=== PATIENT | female | born 1975 | race Caucasian/White ===

== ENCOUNTER 2017-03-31 01:55 | Emergency (ER) | payer MEDICAID ==
[~2017-03-31] VITALS: Ht 165.1 cm; Wt 70.3 kg
[~2017-03-31 01:55] MED LIST: PREN1TAB62 PO
[2017-03-31 02:01] VITALS: Ht 165.1 cm; Wt 70.3 kg
[2017-03-31 02:37] LABS: URINE BLOOD (Dip) POC Trace-intact (NEGATIVE)
[2017-03-31 02:58] LABS: BASOPHILS % 0.5 % (0.0-2.0); EOSINOPHILS # 0.1 10^3/ul (0.0-0.5); EOSINOPHILS % 1.3 % (0.0-7.0); HEMATOCRIT 35.3 % (37.0-47.0); HEMOGLOBIN 11.5 g/dl (12.0-16.0); LYMPHOCYTES # 2.8 10^3/ul (0.8-2.9); LYMPHOCYTES % 35.3 % (15.0-51.0); MEAN CORPUSCULAR HEMOGLOBIN 25.8 pg (29.0-33.0); MEAN CORPUSCULAR HGB CONC 32.6 g/dl (32.0-37.0); MEAN CORPUSCULAR VOLUME 79.3 fl (82.0-101.0); MEAN PLATELET VOLUME 11.6 fl (7.4-10.4); MONOCYTE # 0.6 10^3/ul (0.3-0.9); MONOCYTES % 7.4 % (0.0-11.0); NEUTROPHIL # 4.4 10^3/ul (1.6-7.5); NEUTROPHILS % 55.4 % (39.0-77.0); PLATELET COUNT 306 10^3/UL (140-415); RED BLOOD COUNT 4.45 10^6/ul (4.20-5.40); RED CELL DISTRIBUTION WIDTH 15.9 % (11.5-14.5)
[2017-03-31 03:04] LABS: ADD UMIC YES; UR ASCORBIC ACID 40 mg/dL (NEGATIVE); UR BILIRUBIN (Dip) NEGATIVE (NEGATIVE); UR BLOOD (Dip) NEGATIVE (NEGATIVE); UR CLARITY CLEAR (CLEAR); UR COLOR YELLOW (YELLOW); UR GLUCOSE (Dip) NEGATIVE (NEGATIVE); UR KETONES (Dip) NEGATIVE (NEGATIVE); UR LEUKOCYTE ESTERASE (Dip) NEGATIVE Leu/ul (NEGATIVE); UR NITRITE (Dip) NEGATIVE (NEGATIVE); UR RBC 1 /HPF (0-5); UR SQUAMOUS EPITHELIAL CELL FEW /HPF (FEW); UR TOTAL PROTEIN (Dip) 1+ mg/dl (NEGATIVE); UR UROBILINOGEN (Dip) NEGATIVE (NEGATIVE)
--- NOTE | 2017-03-31 03:06 | RADRPT ---
PROCEDURE: US abdomen limited right upper quadrant. CLINICAL INDICATION: Abdominal pain TECHNIQUE: Multiple real-time images were acquired of the patient's right upper quadrant of the ab domen utilizing a high resolution transducer. COMPARISON: US ABDOMEN 08/07/2012 FINDINGS: Multiple gallstones in the gallbladder. There is no pericholecystic fluid or gallbladder wall thickening. The common bile duct measures 9.9 mm in maximal dimension. No free fluid is identified. No abnormality is seen in the pancreas or liver. The right kidney mariajose ures 10.2 cm in length and is unremarkable. IMPRESSION: Cholelithiasis again seen. Dilated common bile duct again seen. Please see above. RPTAT: HJES .Huseyin Aguilera MD, MD Date Time Electronically viewed and signed by .Huseyin Aguilera MD, on 03/31/2017 03:06 .S/
--- NOTE | 2017-03-31 03:23 | ERD ---
ER Documentation Chief Complaint Chief Complaint epigastric pain 30 min [employer] WORK[employer]. "feels inflammed" -n/v HPI 41-year-old female presents here to emergency department for complaints of epigastric pain sudden onset tonight was sleeping. Patient has had a history of gastritis before. Patient describes the pain as sharp pain, succession scale , not better or worse with anything. Intermittent type of pain. Patient denies any fever chills. Patient denies any vomiting diarrhea or constipation. Patient denies any fever chills. ROS All systems reviewed and are negative except as per history of present illness. Medications Home Meds Reported Medications Vit-Iron Fumarate-FA ( Vitamin Tablet) 1 Each Tablet, 1 EACH PO DAILY 12/20/12 Allergies Allergies: Coded Allergies: No Known Drug Allergies (Verified Allergy, Unknown, 03/31/17) PMhx/Soc History of Surgery: Yes () Anesthesia Reaction: No Hx Neurological Disorder: No Hx Respiratory Disorders: No Hx Cardiac Disorders: Yes (Hypertension) Hx Psychiatric Problems: No Hx Miscellaneous Medical Probl: No Hx Alcohol Use: No Hx Substance Use: No Hx Tobacco Use: No Smoking Status: Never smoker FmHx Family History: No coronary disease, No diabetes, No other Physical Exam Vitals Vital Signs Date Time Temp Pulse Resp B/P Pulse Ox O2 Delivery O2 Flow Rate FiO2 03/31/17 02:01 97.2 71 18 124/71 99 Physical Exam GENERAL: The patient is well developed and appropriate for usual state of health, in no apparent distress. CHEST: Clear to auscultation bilaterally. There are no rales, wheezes or rhonchi. HEART: Regular rate and rhythm. No murmurs, clicks, rubs or gallops. No S3 or S4. ABDOMEN: Soft, nontender and nondistended. Good bowel sounds. No rebound or guarding. No gross peritonitis. No gross organomegaly or masses. No Preciado sign or McBurney point tenderness. BACK: No midline or flank tenderness. EXTREMITIES: Equal pulses bilaterally. There is no peripheral clubbing, cyanosis or edema. No focal swelling or erythema. Full range of motion. Grossly neurovascularly intact. NEURO: Alert and oriented. Cranial nerves 2-12 intact. Motor strength in all 4 extremities with 5/5 strength. Sensation grossly intact. Normal speech and gait. SKIN: There is no apparent rash or petechia. The skin is warm and dry. HEMATOLOGIC AND LYMPHATIC: There is no evidence of excessive bruising or lymphedema. No gross cervical, axillary, or inguinal lymphadenopathy. Result Diagram: 03/31/17 0245 03/31/17 0245 Results 24 hrs Laboratory Tests Test 03/31/17 02:11 03/31/17 02:36 03/31/17 02:45 Troponin I < 0.012ng/ml Bedside Urine pH (LAB) 6.0 Bedside Urine Protein (LAB) 2+ Bedside Urine Glucose (UA) Negative Bedside Urine Ketones (LAB) Negative Bedside Urine Blood Trace-intact Bedside Urine Nitrite (LAB) Negative Bedside Urine Leukocyte Esterase (L Negative White Blood Count 8.010^3/ul Red Blood Count 4.4510^6/ul Hemoglobin 11.5g/dl Hematocrit 35.3% Mean Corpuscular Volume 79.3fl Mean Corpuscular Hemoglobin 25.8pg Mean Corpuscular Hemoglobin Concent 32.6g/dl Red Cell Distribution Width 15.9% Platelet Count 39895^3/UL Mean Platelet Volume 11.6fl Neutrophils % 55.4% Lymphocytes % 35.3% Monocytes % 7.4% Eosinophils % 1.3% Basophils % 0.5% Nucleated Red Blood Cells % 0.0/100WBC Neutrophils # 4.410^3/ul Lymphocytes # 2.810^3/ul Monocytes # 0.610^3/ul Eosinophils # 0.110^3/ul Basophils # 0.010^3/ul Nucleated Red Blood Cells # 0.010^3/ul Urine Color YELLOW Urine Clarity CLEAR Urine pH 5.0 Urine Specific [place] 1.020 Urine Ketones NEGATIVEmg/dL Urine Nitrite NEGATIVEmg/dL Urine Bilirubin NEGATIVEmg/dL Urine Urobilinogen NEGATIVEmg/dL Urine Leukocyte Esterase NEGATIVELeu/ul Urine Microscopic RBC 1/HPF Urine Microscopic WBC 3/HPF Urine Squamous Epithelial Cells FEW/HPF Urine Hemoglobin NEGATIVEmg/dL Urine Glucose NEGATIVEmg/dL Urine Total Protein 1+mg/dl Sodium Level 140mmol/L Potassium Level 3.8mmol/L Chloride Level 104mmol/L Carbon Dioxide Level 25mmol/L Anion Gap 15 Blood Urea Nitrogen 21mg/dl Creatinine 0.90mg/dl Glucose Level 107mg/dl Calcium Level 9.5mg/dl Total Bilirubin 0.1mg/dl Direct Bilirubin 0.00mg/dl Indirect Bilirubin 0.1mg/dl Aspartate Amino Transf (AST/SGOT) 78IU/L Alanine Aminotransferase (ALT/SGPT) 54IU/L Alkaline Phosphatase 97IU/L Total Protein 8.1g/dl Albumin 4.0g/dl Globulin 4.10g/dl Albumin/Globulin Ratio 0.97 Lipase 69U/L EKG was done, read by me and is normal sinus rhythm at a rate of 71, normal axis , there is no ST changes or changes in the EKG that indicates any cardiac emergencies at this time. Patient's EKG was also reviewed by Dr. Jones. Impression: no acute findings on EKG PROCEDURE: XR Chest. CLINICAL INDICATION: Epigastric pain TECHNIQUE: Single frontal view of the chest was obtained COMPARISON: None FINDINGS: The heart and mediastinum are within normal limits. The lungs are clear. There is appearance of minimal blunting of costophrenic angles which could be secondary small pleural effusions. IMPRESSION: Suggestive of very small pleural effusions. RPTAT: HJES .Huseyin Aguilera MD, MD Date Time Electronically viewed and signed by .Huseyin Aguilera MD, MD on 03/31/2017 03:24 .S/ CC: KYLAH CALDERON [employer]MAN[employer]ORER Procedures/MDM Medical Decision Making: Patient symptoms of epigastric pain most likely is consistent with biliary colic. There is very few pleural effusions noted incidentally in the chest x-ray, as per discussion with my attending physician, Dr. Jones, low suspicion for any CHF or any acute pulmonary or cardiopulmonary emergencies at this time. Troponins negative, considering patient has been having the pain since yesterday, negative troponin is low risk for acute coronary syndrome. Chest x-ray does not show any pneumothorax. Ultrasound shows multiple gallbladder stones mildly dilated common bile duct, lipase is normal, liver functions are normal, consistent with biliary colic. Outpatient management is appropriate at this time. There is low suspicion for abdominal emergencies at this time. Patients abdominal exam is normal at this time. Patients radiology exam does not show any abdominal emergencies at this time. There is low suspicion for appendicitis, cholecystitis, abdominal aortic aneurysms or peritonitis at this time. There is low suspicion for sepsis. Patient appears well and is hemodynamically stable. Disposition: Home. Condition: Stable Prescription [place], Zofran, omeprazole Instructions: Patient is advised to take medications as prescribed. Patient is advised to rest, increase fluid intake and do brat diet for next 1-2 days and progress as tolerated. Patient is advised that if symptoms are worse, severe abdominal pain, uncontrolled vomiting, high fever, severe flank pain, worst signs and symptoms, to return to the emergency department immediately. Otherwise, patient can follow up with primary care doctor in 5-7 days. Disclaimer: Inadvertent spelling and grammatical errors are likely due to EHR/ dictation software use and do not reflect on the overall quality of patient care. Also, please note that the electronic time recorded on this note does not necessarily reflect the actual time of the patient encounter. Departure Diagnosis: Primary Impression: Biliary colic Condition: Stable Patient Instructions: Biliary Colic With Gallstone (Confirmed) Additional Instructions: Patient is advised to take medications as prescribed. Patient is advised to rest , increase fluid intake and do brat diet for next 1-2 days and progress as tolerated. Patient is advised that if symptoms are worse, severe abdominal pain , uncontrolled vomiting, high fever, severe flank pain, worst signs and symptoms , to return to the emergency department immediately. Otherwise, patient can follow up with primary care doctor in 5-7 days. KYLAH CALDERON NP Mar 31, 2017 03:23
[2017-03-31 03:27] LABS: ALBUMIN/GLOBULIN RATIO 0.97; BILIRUBIN,INDIRECT 0.1 mg/dl (0-1.1); BILIRUBIN,TOTAL 0.1 mg/dl (0.2-1.3); CALCIUM 9.5 mg/dl (8.4-10.2); CREATININE 0.9 mg/dl (0.44-1.00); POTASSIUM 3.8 mmol/L (3.5-5.1); TOTAL PROTEIN 8.1 g/dl (6.1-8.1)
[2017-03-31] MEDS ORDERED: OMEP20CA16 PO (04:11)
[2017-03-31] MEDS ORDERED: HYDR-906 PO (04:11)
[2017-03-31] MEDS ORDERED: ONDA4TAB14 PO (04:11)
[2017-03-31 04:21] VITALS: BP 119/69; PULSE 69; RESP 18; TEMP 98.4
== END 2017-03-31 04:25 | disposition home or self-care (01) ==
LOC: FTE 01:55
DX: K80.50 Calculus of bile duct without cholangitis or cholecystitis without obstruction (principal); I10 Essential (primary) hypertension
CPT/HCPCS: 36415; 71010; 76705; 80053; 81001; 83690; 84484; 85025; 93005; Z7502; 81003

== ENCOUNTER 2018-05-10 19:55 | Emergency (ER) | payer MEDICAID ==
[~2018-05-10] VITALS: Ht 154.9 cm; Wt 73.0 kg
[~2018-05-10 19:55] MED LIST changes: +HYDR-4011 PO; +OMEP20CA16 PO; +ONDA4TAB14 PO
[2018-05-10 19:59] VITALS: Ht 154.9 cm; Wt 73.0 kg
[2018-05-10] MEDS ORDERED: IBUP-1542 PO (22:02)
[2018-05-10 22:16] VITALS: BP 162/72; PULSE 82; RESP 18
--- NOTE | 2018-05-10 22:20 | ERD ---
ER Documentation Chief Complaint Chief Complaint RIGHT LOWER PELVIC PAIN X 1 MONTH--WORSE TODAY HPI 43-year-old female complaining of right groin pain times 1 month. Patient described pain as burning-like sensation, only had pain when she is lifting her right leg. Patient states that the pain initially onset when she bent over to pick something on the floor. 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 Denies back pain, saddle paresthesia, bowel bladder dysfunction, or dysuria. ROS All systems reviewed and are negative except as per history of present illness. Medications Home Meds Active Scripts Ibuprofen* (Motrin*) 600 Mg Tab, 600 MG PO Q6H PRN for PAIN AND OR ELEVATED TEMP, #30 TAB Prov:MARGO TORRES FIELD SUPERINTENDENT 05/10/18 Omeprazole* (Omeprazole*) 20 Mg Capsule.dr, 20 MG PO DAILY, #30 Prov:KYLAH CALDERON NP 03/31/17 Ondansetron (Ondansetron Odt) 4 Mg Tab.rapdis, 4 MG PO Q6H PRN for NAUSEA AND/OR VOMITING, #20 TAB Prov:KYLAH CALDERON NP 03/31/17 Hydrocodone/Acetaminophen ([place] 5-325 Tablet) 1 Each Tablet, 1 TAB PO Q6H PRN for PAIN, #20 TAB Prov:KYLAH CALDERON NP 03/31/17 Reported Medications Vit-Iron Fumarate-FA ( Vitamin Tablet) 1 Each Tablet, 1 EACH PO DAILY 12/20/12 Allergies Allergies: Coded Allergies: No Known Drug Allergies (Verified Allergy, Unknown, 03/31/17) PMhx/Soc History of Surgery: Yes () Anesthesia Reaction: No Hx Neurological Disorder: No Hx Respiratory Disorders: No Hx Cardiac Disorders: Yes (Hypertension) Hx Psychiatric Problems: No Hx Miscellaneous Medical Probl: No Hx Alcohol Use: No Hx Substance Use: No Hx Tobacco Use: No Smoking Status: Never smoker Physical Exam Vitals Vital Signs Date Temp Pulse Resp B/P (MAP) Pulse Ox O2 O2 Flow FiO2 Time Delivery Rate 05/10/18 98.0 83 18 198/92 99 19:59 (127) Physical Exam General: Well-developed, well-nourished, conscious and coherent, in no distress Skin: Warm and dry without rash, good texture and turgor Head: Normocephalic without evidence of trauma Neck: Supple without meningismus or adenopathy. Carotids are equal. Trachea midline. No bruits or JVD Chest: Normal AP diameter. Good expansion without retractions. Nontender. Lungs are clear to auscultate bilaterally with good tidal volume Heart: Regular rate and rhythm. No murmur, rub, or gallops heard Abdomen: Soft and nontender without masses, guarding, or rebound. Bowel sounds are active. No hepatosplenomegaly Back: Without spinal or CVA tenderness Pelvis: Tenderness over the right psoas muscle. Pain with active range of motion of the right leg, no pain with passive range of motion. Extremities: Full range of motion. Good strength bilaterally. No erythema, ecchymosis, or edema. Peripheral pulses are intact. Sensation intact Neuro: Alert and oriented 4, GCS 15. Results 24 hrs Laboratory Tests Test 05/10/18 21:49 Bedside Urine pH (LAB) 6.0 Bedside Urine Protein (LAB) 2+ Bedside Urine Glucose (UA) Negative Bedside Urine Ketones (LAB) Negative Bedside Urine Blood Trace-lysed Bedside Urine Nitrite (LAB) Negative Bedside Urine Leukocyte Esterase (L Negative Procedures/MDM Well-appearing 43-year-old female present ED was right groin pain times 1 month. No inguinal hernia noted on exam. Patient's pain is related with leg movement, she is noted to have psoas muscle tenderness on exam. I suspect that she has a muscle strain. UA is negative for urinary tract infection or hematuria. Low suspicion for urolithiasis. Patient appears well, stable for discharge and outpatient management. Medical d ecision making shared with patient and family. Education provided to patient and family. Patient and family expressed understanding of the plan. Medications on discharge: Ibuprofen. Follow-up: Primary care provider in 2-3 days or return to ED if worse. Disclaimer: Inadvertent spelling and grammatical errors are likely due to EHR/dictation software use and do not reflect on the overall quality of patient care. Also, please note that the electronic time recorded on this note does not necessarily reflect the actual time of the patient encounter. Departure Diagnosis: Primary Impression: Right groin pain Condition: Stable Patient Instructions: Muscle Strain, Abdomen Referrals: [facility] Usted se beebe hecho un examen mdico de control que le indica que no est en chiara condicin que requiera tratamiento urgente en el Departamento de Emergencia. Un estudio ms profundo y el tratamiento de morales condicin pueden esperar sin ningn riesgo hasta que usted sea atendida/o en el consultorio de morales mdico o chiara clni ca. Es responsabilidad suya arreglar chiara samantha para el seguimiento del colton. MANEJO DE CONDICIONES NO URGENTES EN EL FUTURO 1) Si usted tiene un mdico de atencin primaria: Usted debera llamar a morales mdico de atencin primaria antes de venir al departam ento de emergencia. Despus de las horas de consultorio, morales doctor o morales asociado/a est disponible por telfono. El mdico o enfermero de luis en el servicio telefnico puede asesorarle por alla medio para atender el problema, o colton contrario se puede programar chiara samantha. 2) Si usted no tiene un mdico de atencin primaria: Llame al mdico o clnica de referencia que aparece abajo shasha las horas de consultorio para hacer chiara samantha para que le vean. CLINICAS: [facility] [id number] [facility] [id number] [facility] [phone] [address] [facility]. [facility] [phone] [address] [place] [id number] [phone] [facility]. [phone] [address] Additional Instructions: Llame al doctor nombrado abajo (Referral Sources) MAANA y mike chiara SAMANTHA PARA DENTRO DE CHIARA SEMANA. Dgale a la secretaria que nosotros le instruimos hacer esta samantha.Avise o llame si morales condicin se empeora antes de la samantha. Ask your primary provider for a referral to physical therapy. MARGO TORRES. JANESSA May 10, 2018 22:19
== END 2018-05-10 22:18 | disposition home or self-care (01) ==
LOC: FTE 19:55
DX: R10.31 Right lower quadrant pain (principal); I10 Essential (primary) hypertension
CPT/HCPCS: 81003; Z7502; 99282